=== PATIENT | female | born 1985 | race Caucasian/White ===

== ENCOUNTER 2025-02-17 04:28 | Emergency (ER) | payer OTHER, SELFPAY ==
[2025-02-17 04:31] VITALS: BP 160/106
[2025-02-17 04:48] VITALS: BMI 38.7
--- NOTE | 2025-02-17 04:50 | EDRN ---
After dinner, pt started feeling indigestion which kept getting worse. Pt tried to sleep in guest room, tossed and turned for hours unable to get comfortable. Pt had trouble breathing because pain was so bad. Pt took Tums at midnight but says she
vomited afterwards. 'I feel like I'm 9 months , that pressure and bloating and it sometimes goes all the way around my back.' Dinner was [place] food. Pt felt nauseous on the way to the hospital and felt she was full of gas, tried to burp
hoping to push out the discomfort. Pain is upper abdomen under ribs, around to back occasionally. Pt felt chilled while lying in bed. No fever/cough, urinary symptoms, cp. No hx of gallbladder disease/stones.
[2025-02-17 05:08] LABS: Hematocrit 43.0 % (37.0-47.0); Hemoglobin 15.0 g/dL (12.0-16.0); Mean Corp Hgb Conc. 34.9 g/dL (33.0-37.0); Mean Corpuscular Volume 89.0 fL (81.0-99.0); Nucleated Red Blood Cells % 0 %; Platelet Count 275 10^3/uL (130-400); Red Cell Dist. Width 12.1 % (11.5-14.5)
[2025-02-17] MEDS: NSS 1000 IV (05:15)
[2025-02-17 05:19] LABS: HCG, Serum Qualitative Screen Negative
[2025-02-17 05:26] LABS: ALT (SGPT) 14 U/L (0-35); AST (SGOT) 16 U/L (14-36); Albumin 4.7 g/dl (3.5-5.0); Alkaline Phosphatase 61 U/L (38-126); Blood Urea Nitrogen 14 mg/dl (7-17); Calcium 10.1 mg/dl (8.4-10.2); Carbon Dioxide 29 mmol/L (22-30); Chloride 104 mmol/L (98-107); Estimated Creatinine Clearance 108 ml/min; Glucose 136 mg/dl (70-99); Lipase 42 U/L (23-300); Potassium 4.3 mmol/L (3.5-5.1); Sodium 138 mmol/L (135-145); Total Protein 8.0 g/dl (6.3-8.2); eGFR > 60.00
[2025-02-17 06:17] VITALS: BP 122/69
--- NOTE | 2025-02-17 06:41 | ED.GENMED ---
History of Present Illness
General
Chief Complaint: Abdominal Pain
Source: patient
Exam Limitations: none
Time Seen by Provider: 02/17/25 06:06
Nursing documentation reviewed up to this point in time: agreed with
History of Present Illness
History of Present Illness:
see MDM
Phy Exam
Physical Exam
Physical Exam:
see MDM
Course
Orders/Labs/Results
Orders:
Orders
02/17/25 04:45
IV Insert/Care/Rem.- Treatment PRN
02/17/25 04:46
Test Result ONCE
02/17/25 04:58
Complete Blood Count/With Diff Urgent
Comprehensive Metabolic Panel Urgent
HCG, Serum Qualitative Screen Urgent
Comment: Notify provider if positive test present
Lipase Urgent
02/17/25 05:08
0.9% Sodium Chloride 1000 ml [Nss] 1,000 ml IV BOLUS
HYDROmorphone [Dilaudid] 1 mg IV NOW STA
Ondansetron Injectable [Zofran] 4 mg IV NOW STA
02/17/25 05:09
Electrocardiogram (*1) Urgent
Reason for Study: Abdominal Pain
EKG- Treatment ONCE
02/17/25 06:24
US Abdomen Complete/Upper Urgent
Comment:
Reason For Exam: UPPER ABD PAIN, VOMITING
02/17/25 08:44
Urinalysis Reflex To Culture Urgent
Date Specimen was Collected: 02/17/25
Time Specimen was Collected: 08:14
Urine Microscopic Reflex Cult Urgent
Urine Culture Urgent
VILMA Source: U
Specimen Description:
Date Specimen was Collected: 02/17/25
Time Specimen was Collected: 08:14
Abnormal Lab Results
02/17/25 02/17/25
04:58 08:44
MCH 31.1 H pg
(27.0-31.0)
Absolute Neuts (auto) 7.4 H 10^3/uL
(1.4-6.5)
Neutrophils % 78.2 H %
(42.2-75.2)
Lymphocytes % 14.4 L %
(20.5-51.1)
Glucose 136 H mg/dl
(70-99)
Leukocyte Esterase Rfl 1+ A
(Negative)
Urine Bacteria (Reflex) Many A
(Negative)
Urine Albumin (Reflex) 3+ A
(Neg - Trace)
02/17/25 04:58
02/17/25 04:58
Vital Signs
Initial and Last Documented VS:
Initial Vital Signs
Temp Pulse Resp BP Pulse Ox
37.2 C 110 28 160/106 100
02/17/25 04:31 02/17/25 04:31 02/17/25 04:31 02/17/25 04:31 02/17/25 04:31
Last Documented Vital Signs
Temp Pulse Resp BP Pulse Ox
36.9 C 75 16 126/85 98
02/17/25 08:11 02/17/25 08:11 02/17/25 08:11 02/17/25 08:11 02/17/25 08:11
MDM/Problems Addressed
Differential Diagnosis Includes:
see MDM
MDM/Problems Addressed:
Note:
CHIEF COMPLAINT(S)
Abdominal pain experienced after eating, worsened over time, and accompanied by vomiting.
HISTORY OF PRESENT ILLNESS
The patient is a 39-year-old female who presents with abdominal pain that began after dinner the previous night at around 7 PM. The pain initially felt like indigestion and was localized in the upper abdomen, progressively worsening throughout the
night. It culminated in severe discomfort where the patient described her abdomen as feeling 'hard' and likened the sensation to being 'nine months .' The pain affected her ability to sleep comfortably, leading to a restless night with an
eventual onset of difficulty in breathing, prompting the visit to the emergency department.
The patient reported taking Tums at approximately 9 PM without relief. During the drive to the hospital, she experienced significant vomiting but did not find immediate relief post-emesis. Upon arrival at the hospital, she continued to experience
intense pain until about 30 minutes prior to the consultation, after receiving intravenous fluids, which coincided with some relief and softening of the abdomen.
She reported minimal passage of gas and no bowel movement since a normal one the previous day. The pain was atypical for her, having experienced a less severe episode approximately three months prior, which she initially suspected might be related
to a kidney stone.
Additionally, the pain radiated to her back. At present, her back pain has subsided, and the abdominal discomfort is markedly reduced.
The patient consumed [place] food for dinner, including items like tzatziki and falafel. She retains her gallbladder and has never experienced similar postprandial pain. She denies any urinary issues or abdominal distension.
PAST SURGICAL HISTORY
The patient underwent a cardiac ablation in 2012 or 2013 for unspecified reasons, performed electively following a referral to a building maintenance worker and landscaping manager.
SOCIAL DETERMINANTS AFFECTING HEALTH
The patient experienced significant anxiety during her car ride to the hospital due to the presence of her two young daughters.
PHYSICAL EXAM
GENERAL: Alert , in no apparent distress TOTALLY PAIN FREE
EYE: pupils equal and reactive
NECK: Supple
ENT: o/p clr, mmm.
CARDIAC: Regular rate and rhythm .
LUNGS: Clear breath sounds bilaterally, no acute respiratory distress, no wheezes/rales/rhonchi
ABDOMEN: Soft, without focal tenderness, no r/g, no cvat, normal bowel sounds
Negative Stoddard sign, no CVA tenderness
NEUROLOGICAL: Alert and oriented, no focal neuro deficits
SKIN: Warm and dry, skin intact.
MUSCULOSKELETAL: No edema, well perfused. neg remington's sign
PSYCH: Normal and appropriate interaction.
Nursing notes reviewed and vital signs reviewed.
PROBLEM LIST
Acute:
- Episodic abdominal pain with associated vomiting and hard abdomen.
Possibly constipation or gas
- Possible biliary issue.
PLAN
An ultrasound of the gallbladder will be performed to assess for gallstones or biliary abnormalities. Patient is advised to monitor for recurrence of pain and inform the medical team if symptoms intensify. Further interventions depend on the
ultrasound results and the evolution of symptoms.
DIFFERENTIAL DIAGNOSIS
The Differential Diagnosis includes, in no particular order and is not limited to:
1. Biliary colic due to gallstones
2. Gastritis or peptic ulcer disease
3. Gastroesophageal reflux disease
4. Gastroenteritis
5. Pancreatitis
6. Intestinal obstruction
7. Renal colic or nephrolithiasis
8. Diaphragmatic hernia
9. Cholecystitis
10. Functional dyspepsia
Constipation, bowel gas
02/17/25 - 08:25
pretty intense upper abd bloating and nausea and distension OFFBEARER with 1 episode vomiting; felt like she needed to pass gas
DECLINED THE DILAUDID but got fluids and has passed gas anb y the time i saw her was TOTOALLY DWIGHT FREE, nontender
labs reassuring
ekg nonishcmie normal
but we talked about getting US to r/o gallstones in case this was biliary colic but my gestaltw as that it was gas/constipatoin p ain.
Ultrasound results are normal, showing no gallstones or gallbladder infection. Kidneys and aorta are also normal. Gas was noted overlying the pancreas, which is a common finding and not indicative of excessive gas or constipation. The patient
reports feeling fine. Suggested dietary adjustments include increasing fiber through options such as Metamucil or prunes, or considering a course of Miralax for two to three days to alleviate presumed stool retention causing trapped gas. The patient
should monitor for any worsening symptoms such as fever or vomiting and return for further evaluation if they occur. The patient did not take prescribed pain medication and is feeling better post fluid administration. No evidence from labs
indicating gallstone passage. The plan is to discharge the patient with these recommendations.
*Pulse Oximetry
SaO2: 99
Oxygen Mode of Delivery: Room air
Patient hypoxic: no (98)
*Critical Care Note
Total Time (30-74mins, 75-104mins- exclusive of procedures): Not Applicable
ED Attending Note
-
Portions of this chart may have been created with voice recognition software.� Occasional wrong word or��sound alike� substitutions may have occurred due to the inherent limitations of voice recognition software.
Discharge Plan
Departure
Patient Disposition: Home (Routine Discharge)
Date of Disposition: 02/17/25
Time of Disposition: 08:27
Patient with high blood pressure during this ER visit?: No
Condition: Fair
Covid-19: Not Applicable
Discharge Problem:
Abdominal pain
Instructions: Abdominal Pain
Prescriptions:
No Action
losartan 50 mg Tablet
50 mg PO DAILY
Referrals:
Asmita Ramírez DO [Family Provider, Internal Medicine] - Follow up in 2-3 days
Activity Restrictions/Additional Instructions:
Your ultrasound did not show any signs of gallstones or gallbladder infection. Your pain could have been from gas and constipation. You could try dose of MiraLAX today, up to twice a day for 2 to 3 days in a row as needed. You could also use
Gas-X for additional pain. Drink fluids and stay hydrated. You could also avoid the MiraLAX and just do Metamucil and stay hydrated or use prunes to help keep your bowel movements regular.
Your blood work was reassuring. Return to the ER for worsening pain, fever, passing out, bloody stool, abdominal distention, vomiting etc.
Interventions
Interventions:
*Risk Screen - Suicide Last Done: 02/17/25 04:31
*General Assessment Last Done: 02/17/25 04:48
*Neglect/Abuse Screening Last Done: 02/17/25 04:31
*ED- Fall Risk Assessment Last Done: 02/17/25 04:59
*ED COVID-19 Vaccine History Last Done: 02/17/25 08:12
*Nursing Disposition Last Done: 02/17/25 09:00
AH-Tionsh-Tdhbgvcgvq Assessment Last Done: 02/17/25 05:04
Discharge Date and Time
Discharge Date/Time: 02/17/25 09:00
Print Language: HAITIAN
[2025-02-17 08:11] VITALS: BP 126/85
[2025-02-17 09:13] LABS: Urine Character Clear (Clear)
[2025-02-17 09:46] LABS: Urine Red Blood Cell 0-2 /HPF (0-2)
== END 2025-02-17 09:00 | disposition home or self-care (01) ==
LOC: EMR 04:28
PROVIDERS: Emergency Medicine; Physician Assistant; EMERGENCY PHYSICIAN Student in an Organized Health Care Education/Training Program; FAMILY PHYSICIAN Pediatrics
DX: R10.9 Unspecified abdominal pain (principal)
CPT/HCPCS: 99284; 96360; 76700; 80053; 81003; 81015; 83690; 84703; 85025; 87086; 93005